=== PATIENT | male | born 1970 | race Caucasian/White ===

== ENCOUNTER 2020-05-15 17:24 | Inpatient (IN) | payer MEDICARE ==
[2020-05-15] MEDS ORDERED: HYDROmorphone 0.5 MG/0.5 ML SYRINGE ONE ×2 (18:11→20:35)
[2020-05-15] MEDS ORDERED: Ondansetron PF 4 MG/2 ML Vial ONE (18:11)
[2020-05-15 18:54] LABS: ALT (SGPT) 34 U/L (8-55); AST (SGOT) 47 U/L (5-34); Albumin 4.4 g/dL (3.5-5.0); Alkaline Phosphatase 68 U/L (40-110); Anion Gap 22 mmol/L (10-20); BUN (Urea Nitrogen) 7 mg/dL (8.4-25.7); Bilirubin, Total 0.2 mg/dL (0.2-1.2); Calc. Creatinine Clearance 0 mL/min (70-130); Calcium 9.7 mg/dL (7.8-10.44); Carbon Dioxide 22 mmol/L (22-29); Chloride 104 mmol/L (98-107); Glucose 90 mg/dL (70-105); Lipase 174 U/L (8-78); Potassium 3.8 mmol/L (3.5-5.1); Protein, Total 8.4 g/dL (6.0-8.3); Sodium 144 mmol/L (136-145)
[2020-05-15 19:08] LABS: #Basophils 0.1 10x3/uL (0.0-0.2); #Eosinphils 0.2 10x3/uL (0.0-0.5); #Monocytes 1.1 10x3/uL (0.0-1.1); #Neutrophils 10.7 10x3/uL (1.5-8.4); %Basophils 0.4 % (0.0-2.0); %Eosinophils 1.4 % (0.0-6.0); %Lymphocytes 14.4 % (18.0-47.0); %Monocytes 7.5 % (0.0-10.0); %Neutrophils 75.7 % (40.0-75.0); Hemoglobin 16.5 g/dL (13.5-17.5); Mean Corpuscular HGB CONC 32.8 g/dL (32.0-36.0); Mean Corpuscular Hemoglobin 30.3 pg (27.0-33.0); Mean Corpuscular Volume 92.5 fl (81.2-95.1); Mean Platelet Volume 10.8 fl (7.4-10.4); Platelet Count 176 10x3/uL (150-450); RBC Distribution Width 15.2 % (11.5-14.5); Red Blood Cell (RBC) Count 5.44 10x6/uL (4.32-5.72); White Blood Cell (WBC) Count 14.1 10x3/uL (3.5-10.5)
[2020-05-15 19:47] LABS: Bilirubin Neg (Negative); Blood, Urine Negative (Negative); Clarity Clear (Clear); Glucose, Urine (Dipstick) Normal (Negative); Ketone, Urine 50 mg/dL (Negative); Leukocyte Negative (Negative); Nitrite Negative (Negative); Protein, Urine (Dipstick) 15 mg/dl (Neg-Trace); Specific Gravity, Urine 1.015 (1.002-1.036); Urobilinogen Normal mg/dL (Less than 2); pH, Urine 6.5 (5.0-9.0)
[2020-05-15] MEDS ORDERED: Promethazine HCl 25 MG/ML VIAL ONE (20:56)
[2020-05-15] MEDS ORDERED: Guaifenesin DM 100-10/5 ML UDCUP PO PRN (21:45)
[2020-05-15] MEDS ORDERED: Zolpidem Tartrate 5 MG TAB PO PRN (21:45)
[2020-05-15] MEDS ORDERED: Senokot S 8.6-50 MG TAB PO PRN (21:45)
[2020-05-15] MEDS ORDERED: Acetaminophen 325 MG TAB PO PRN (21:45)
[2020-05-15] MEDS ORDERED: Calcium Carbonate 500 MG ChewTAB PO PRN (21:45)
[2020-05-15] MEDS ORDERED: Promethazine HCl 12.5 MG in Sodium Chloride 0.9% 50 ML IVPB PRN (21:47)
[2020-05-15] MEDS ORDERED: Ondansetron PF 4 MG/2 ML Vial IVP PRN (21:56)
[2020-05-15] MEDS ORDERED: Sodium Chloride 0.9% (PF) 10 ML VIAL FS PRN (23:45)
[2020-05-15] MEDS ORDERED: Pantoprazole 40 MG VIAL IVP SCH (23:59)
[2020-05-16] MEDS: Lactated Ringer's 1,000 ML IV SCH ×5 (00:23→22:18)
[2020-05-16] MEDS: Nicotine 21 MG PATCH TD SCH ×2 (00:24→23:18)
[2020-05-16] MEDS: HYDROcodone/Acetaminophen 5/325 mg Tablet PO PRN ×6 (00:24→22:11)
[2020-05-16] MEDS: HYDROmorphone 0.5 MG/0.5 ML SYRINGE SLOW IVP PRN ×6 (00:27→22:11)
[2020-05-16 05:20] VITALS: BMI 21.2
[2020-05-16 05:32] LABS: #Eosinphils 0.2 10x3/uL (0.0-0.5); #Monocytes 0.7 10x3/uL (0.0-1.1); #Neutrophils 4.5 10x3/uL (1.5-8.4); %Basophils 0.6 % (0.0-2.0); %Eosinophils 2.7 % (0.0-6.0); %Monocytes 10.2 % (0.0-10.0); %Neutrophils 62.8 % (40.0-75.0); Hemoglobin 12.8 g/dL (13.5-17.5); Mean Corpuscular HGB CONC 32.2 g/dL (32.0-36.0); Mean Corpuscular Hemoglobin 30.3 pg (27.0-33.0); Mean Corpuscular Volume 94.1 fl (81.2-95.1); Mean Platelet Volume 10.6 fl (7.4-10.4); Platelet Count 137 10x3/uL (150-450); RBC Distribution Width 15.2 % (11.5-14.5); Red Blood Cell (RBC) Count 4.22 10x6/uL (4.32-5.72); White Blood Cell (WBC) Count 7.1 10x3/uL (3.5-10.5)
[2020-05-16 05:47] LABS: Anion Gap 15 mmol/L (10-20); Cardiac Risk 2.1 (Less than 4.5); LDL Cholesterol, Calculated 50 mg/dL
[2020-05-16 05:56] LABS: BUN (Urea Nitrogen) 8 mg/dL (8.4-25.7); Calc. Creatinine Clearance 111 mL/min (70-130); Calcium 7.8 mg/dL (7.8-10.44); Carbon Dioxide 25 mmol/L (22-29); Chloride 107 mmol/L (98-107); Cholesterol 120 mg/dl (< 200 Desired); Glucose 72 mg/dL (70-105); HDL Cholesterol 57 mg/dL (>60 Neg Risk); Lipase 77 U/L (8-78); Magnesium 1.6 mg/dL (1.6-2.6); Potassium 3.6 mmol/L (3.5-5.1); Sodium 143 mmol/L (136-145); Triglycerides 67 mg/dL (Less than 150)
[2020-05-16] MEDS: Pantoprazole 40 MG VIAL IVP SCH ×2 (08:58→22:11)
[2020-05-16] MEDS: Multivitamin W/ Minerals 1 TAB PO SCH (08:58)
[2020-05-16] MEDS: Aspirin 81 mg Enteric Coated Tablet PO SCH (08:58)
[2020-05-16] MEDS: Enoxaparin Sodium 40 MG/0.4 ML SYRINGE SC SCH (08:59)
[2020-05-17 02:23] LABS: SARS-CoV-2 PCR by NAA Not Detected (NotDetected)
[2020-05-17] MEDS: HYDROcodone/Acetaminophen 5/325 mg Tablet PO PRN ×2 (03:42→09:17)
[2020-05-17] MEDS: HYDROmorphone 0.5 MG/0.5 ML SYRINGE SLOW IVP PRN (03:44)
[2020-05-17] MEDS: Lactated Ringer's 1,000 ML IV SCH (06:37)
[2020-05-17] MEDS: Pantoprazole 40 MG VIAL IVP SCH (09:16)
[2020-05-17] MEDS: Enoxaparin Sodium 40 MG/0.4 ML SYRINGE SC SCH (09:17)
[2020-05-17] MEDS: Multivitamin W/ Minerals 1 TAB PO SCH (09:17)
[2020-05-17] MEDS: Aspirin 81 mg Enteric Coated Tablet PO SCH (09:17)
[2020-05-17 13:34] VITALS: BP 148/100; TEMP 98.1
== END 2020-05-17 13:22 | disposition home or self-care (01) | DRG 439 ==
LOC: CSHERS 17:24 → CSHTELE 23:38
PROVIDERS: ADMIT Student in an Organized Health Care Education/Training Program; ATTEND Family Medicine
DX: K85.90 Acute pancreatitis without necrosis or infection, unspecified (principal); R65.10 Systemic inflammatory response syndrome (SIRS) of non-infectious origin without acute organ dysfunction; E46 Unspecified protein-calorie malnutrition; K86.1 Other chronic pancreatitis; Z20.822 Contact with and (suspected) exposure to COVID-19; F17.200 Nicotine dependence, unspecified, uncomplicated; K29.80 Duodenitis without bleeding; Z79.82 Long term (current) use of aspirin; Z79.899 Other long term (current) drug therapy; Z88.5 Allergy status to narcotic agent; Z88.8 Allergy status to other drugs, medicaments and biological substances; Z81.1 Family history of alcohol abuse and dependence; Z82.61 Family history of arthritis; E86.0 Dehydration; F10.21 Alcohol dependence, in remission; D63.8 Anemia in other chronic diseases classified elsewhere; K21.9 Gastro-esophageal reflux disease without esophagitis
CPT/HCPCS: 36415; 74177; 80048; 80053; 80061; 81003; 83690; 83735; 85025; 87040; 87635; 93005; 96374; 96375; 96376; C9113; J1170; J2405; J2550; J7120; U0003; U0005

== ENCOUNTER 2020-06-15 09:27 | Inpatient (IN) | payer MEDICARE ==
[2020-06-15 10:29] LABS: Hemoglobin 14.2 g/dL (13.5-17.5); Mean Corpuscular HGB CONC 33.6 g/dL (32.0-36.0); Mean Corpuscular Hemoglobin 30.2 pg (27.0-33.0); Mean Platelet Volume 9.8 fl (7.4-10.4); Platelet Count 233 10x3/uL (150-450); RBC Distribution Width 13.8 % (11.5-14.5); White Blood Cell (WBC) Count 5.7 10x3/uL (3.5-10.5)
[2020-06-15] MEDS ORDERED: Ondansetron PF 4 MG/2 ML Vial ONE ×3 (10:32→10:34)
[2020-06-15] MEDS ORDERED: HYDROmorphone 0.5 MG/0.5 ML SYRINGE ONE (10:33)
[2020-06-15 10:35] LABS: MDiff Complete? YES
[2020-06-15 10:36] LABS: ALT (SGPT) 23 U/L (8-55); AST (SGOT) 48 U/L (5-34); Albumin 3.4 g/dL (3.5-5.0); Alkaline Phosphatase 99 U/L (40-110); Anion Gap 19 mmol/L (10-20); BUN (Urea Nitrogen) 9 mg/dL (8.4-25.7); Bilirubin, Total 0.3 mg/dL (0.2-1.2); Calc. Creatinine Clearance 0 mL/min (70-130); Calcium 8.7 mg/dL (7.8-10.44); Carbon Dioxide 26 mmol/L (22-29); Chloride 97 mmol/L (98-107); Globulin 4.5 g/dL (2.4-3.5); Glucose 122 mg/dL (70-105); Potassium 3.3 mmol/L (3.5-5.1); Protein, Total 7.9 g/dL (6.0-8.3); Sodium 139 mmol/L (136-145)
[2020-06-15 10:53] LABS: Band 25 % (5-11); Lymphocytes 5 % (21-51); Monocytes 1 % (0-10); Neutrophil 68 % (42-75)
[2020-06-15 10:54] LABS: Platelet Morphology Comment Appears Adequate
[2020-06-15 11:51] LABS: SARS-CoV-2 NAA Rapid Test Not Detected (NotDetected)
[2020-06-15] MEDS ORDERED: Ondansetron PF 4 MG/2 ML Vial IVP PRN (11:56)
[2020-06-15] MEDS ORDERED: Acetaminophen 325 MG TAB PO PRN (11:56)
[2020-06-15] MEDS ORDERED: metroNIDAZOLE 500 MG/100 ML BAG ONE (11:57)
[2020-06-15] MEDS ORDERED: Cefepime 2 GM VIAL ONE (11:57)
[2020-06-15] MEDS ORDERED: Potassium Chloride 20 MEQ in Premix Bag 1 BAG IVPB SCH ×2 (12:45→15:45)
[2020-06-15 15:17] VITALS: BMI 21.2
[2020-06-15] MEDS ORDERED: HYDROmorphone 0.5 MG/0.5 ML SYRINGE SLOW IVP SCH (15:45)
[2020-06-15] MEDS: Nicotine 21 MG PATCH TD SCH (15:53)
[2020-06-15] MEDS: Lactated Ringer's 1,000 ML IV SCH ×2 (15:54→20:51)
[2020-06-15] MEDS: PANCRELIPASE PO SCH (18:18)
[2020-06-15] MEDS: Pantoprazole 40 MG VIAL IVP SCH (20:51)
[2020-06-15] MEDS: HYDROcodone/Acetaminophen 10/325 mg Tablet PO PRN (20:52)
[2020-06-16] MEDS: HYDROcodone/Acetaminophen 10/325 mg Tablet PO PRN ×3 (00:36→11:10)
[2020-06-16 05:40] LABS: #Eosinphils 0.2 10x3/uL (0.0-0.5); #Monocytes 0.9 10x3/uL (0.0-1.1); #Neutrophils 9.5 10x3/uL (1.5-8.4); %Basophils 0.3 % (0.0-2.0); %Eosinophils 1.8 % (0.0-6.0); %Lymphocytes 11.4 % (18.0-47.0); %Monocytes 7.4 % (0.0-10.0); %Neutrophils 78.4 % (40.0-75.0); Hemoglobin 11.9 g/dL (13.5-17.5); Mean Corpuscular HGB CONC 31.3 g/dL (32.0-36.0); Mean Corpuscular Hemoglobin 29.9 pg (27.0-33.0); Mean Corpuscular Volume 95.5 fl (81.2-95.1); Mean Platelet Volume 10.4 fl (7.4-10.4); Platelet Count 243 10x3/uL (150-450); RBC Distribution Width 14.2 % (11.5-14.5); Red Blood Cell (RBC) Count 3.98 10x6/uL (4.32-5.72); White Blood Cell (WBC) Count 12.1 10x3/uL (3.5-10.5)
[2020-06-16 05:45] LABS: Anion Gap 12 mmol/L (10-20)
[2020-06-16 06:04] LABS: BUN (Urea Nitrogen) 8 mg/dL (8.4-25.7); Calc. Creatinine Clearance 121 mL/min (70-130); Carbon Dioxide 25 mmol/L (22-29); Chloride 103 mmol/L (98-107); Glucose 75 mg/dL (70-105); Lipase 31 U/L (8-78); Potassium 3.6 mmol/L (3.5-5.1); Sodium 136 mmol/L (136-145)
[2020-06-16] MEDS: Lactated Ringer's 1,000 ML IV SCH ×2 (07:25→13:38)
[2020-06-16] MEDS: Pantoprazole 40 MG VIAL IVP SCH (08:49)
[2020-06-16] MEDS: PANCRELIPASE PO SCH ×2 (08:49→11:11)
[2020-06-16] MEDS ORDERED: Aspirin 81 mg Enteric Coated Tablet PO SCH (09:00)
[2020-06-16] MEDS ORDERED: Multivitamin W/ Minerals 1 TAB PO SCH (09:00)
[2020-06-16] MEDS ORDERED: cefTRIAXone\\ROCEPHIN 2 GM in Sodium Chloride 0.9% 100 ML IVPB SCH (10:00)
[2020-06-16 12:09] VITALS: BP 109/73; TEMP 97.6
[2020-06-16] MEDS: Nicotine 21 MG PATCH TD SCH (13:39)
== END 2020-06-16 13:59 | disposition home or self-care (01) | DRG 439 ==
LOC: CSHERS 09:27 → CSHERHOLD 11:12 → CSHTELE 15:08
PROVIDERS: ADMIT Internal Medicine; ATTEND Internal Medicine
DX: K85.90 Acute pancreatitis without necrosis or infection, unspecified (principal); R65.10 Systemic inflammatory response syndrome (SIRS) of non-infectious origin without acute organ dysfunction; K86.1 Other chronic pancreatitis; K29.80 Duodenitis without bleeding; Z88.5 Allergy status to narcotic agent; Z88.8 Allergy status to other drugs, medicaments and biological substances; Z20.822 Contact with and (suspected) exposure to COVID-19; F17.210 Nicotine dependence, cigarettes, uncomplicated; E87.6 Hypokalemia; E86.0 Dehydration
CPT/HCPCS: 0240U; 36415; 71045; 74177; 80048; 80053; 83605; 83690; 83735; 84484; 85025; 87040; 93005; 96365; 96367; 96375; C9113; J0692; J0696; J1170; J2405; J3480; J3490

== ENCOUNTER 2020-06-22 19:20 | Observation (INO) | payer MEDICARE ==
[2020-06-22] MEDS ORDERED: Morphine 4 MG/ML VIAL ONE (20:12)
[2020-06-22] MEDS ORDERED: Ondansetron PF 4 MG/2 ML Vial ONE (20:12)
[2020-06-22 20:38] LABS: #Basophils 0.1 10x3/uL (0.0-0.2); #Eosinphils 0.1 10x3/uL (0.0-0.5); #Monocytes 1.2 10x3/uL (0.0-1.1); #Neutrophils 8.8 10x3/uL (1.5-8.4); %Basophils 0.5 % (0.0-2.0); %Lymphocytes 15.5 % (18.0-47.0); %Monocytes 9.6 % (0.0-10.0); %Neutrophils 71.3 % (40.0-75.0); Hemoglobin 13.3 g/dL (13.5-17.5); Mean Corpuscular HGB CONC 33.5 g/dL (32.0-36.0); Mean Corpuscular Hemoglobin 29.6 pg (27.0-33.0); Mean Corpuscular Volume 88.4 fl (81.2-95.1); Mean Platelet Volume 9.8 fl (7.4-10.4); Platelet Count 276 10x3/uL (150-450); RBC Distribution Width 14.6 % (11.5-14.5); Red Blood Cell (RBC) Count 4.49 10x6/uL (4.32-5.72); White Blood Cell (WBC) Count 12.3 10x3/uL (3.5-10.5)
[2020-06-22 20:57] LABS: ALT (SGPT) 127 U/L (8-55); AST (SGOT) 85 U/L (5-34); Alkaline Phosphatase 210 U/L (40-110); Anion Gap 16 mmol/L (10-20); BUN (Urea Nitrogen) 8 mg/dL (8.4-25.7); Bilirubin, Total 0.3 mg/dL (0.2-1.2); Calc. Creatinine Clearance 0 mL/min (70-130); Calcium 8.3 mg/dL (7.8-10.44); Carbon Dioxide 26 mmol/L (22-29); Chloride 98 mmol/L (98-107); Globulin 3.6 g/dL (2.4-3.5); Glucose 134 mg/dL (70-105); Lipase 64 U/L (8-78); Potassium 3.1 mmol/L (3.5-5.1); Protein, Total 6.6 g/dL (6.0-8.3); Sodium 137 mmol/L (136-145)
[2020-06-23] MEDS ORDERED: Ondansetron PF 4 MG/2 ML Vial IVP PRN (00:52)
[2020-06-23] MEDS ORDERED: Ondansetron ODT 4 MG TAB PO PRN (00:52)
[2020-06-23] MEDS ORDERED: Morphine 10 MG/ML CARPUJECT SLOW IVP PRN (01:02)
[2020-06-23] MEDS: Lactated Ringer's 1,000 ML IV SCH ×2 (01:21→02:08)
[2020-06-23] MEDS: Morphine 4 MG/ML VIAL SLOW IVP PRN ×6 (01:23→20:48)
[2020-06-23] MEDS: Nicotine 21 MG PATCH TD SCH (01:26)
[2020-06-23 01:31] VITALS: BMI 21.2
[2020-06-23] MEDS: NS 0.9% w/ 40 MEQ KCL 1,000 ML IV SCH ×5 (03:05→21:15)
[2020-06-23 05:07] LABS: #Basophils 0.1 10x3/uL (0.0-0.2); #Eosinphils 0.2 10x3/uL (0.0-0.5); #Neutrophils 6.3 10x3/uL (1.5-8.4); %Basophils 0.5 % (0.0-2.0); %Eosinophils 1.8 % (0.0-6.0); %Lymphocytes 18.9 % (18.0-47.0); %Monocytes 10.3 % (0.0-10.0); %Neutrophils 66.4 % (40.0-75.0); Hemoglobin 12.5 g/dL (13.5-17.5); Mean Corpuscular HGB CONC 32.5 g/dL (32.0-36.0); Mean Corpuscular Hemoglobin 29.6 pg (27.0-33.0); Mean Platelet Volume 9.8 fl (7.4-10.4); Platelet Count 264 10x3/uL (150-450); RBC Distribution Width 14.5 % (11.5-14.5); Red Blood Cell (RBC) Count 4.23 10x6/uL (4.32-5.72); White Blood Cell (WBC) Count 9.5 10x3/uL (3.5-10.5)
[2020-06-23 05:23] LABS: ALT (SGPT) 84 U/L (8-55); AST (SGOT) 63 U/L (5-34); Albumin 2.5 g/dL (3.5-5.0); Alkaline Phosphatase 180 U/L (40-110); Anion Gap 12 mmol/L (10-20); BUN (Urea Nitrogen) 6 mg/dL (8.4-25.7); Bilirubin, Direct 0.2 mg/dL (0.1-0.3); Bilirubin, Total 0.3 mg/dL (0.2-1.2); Calc. Creatinine Clearance 133 mL/min (70-130); Calcium 8.1 mg/dL (7.8-10.44); Carbon Dioxide 25 mmol/L (22-29); Chloride 104 mmol/L (98-107); Glucose 80 mg/dL (70-105); Lipase 51 U/L (8-78); Magnesium 1.8 mg/dL (1.6-2.6); Potassium 3.4 mmol/L (3.5-5.1); Protein, Total 5.8 g/dL (6.0-8.3); Sodium 138 mmol/L (136-145)
[2020-06-23] MEDS: Enoxaparin Sodium 40 MG/0.4 ML SYRINGE SC SCH (09:26)
[2020-06-23] MEDS: Pantoprazole 40 MG VIAL IVP SCH (09:26)
[2020-06-23] MEDS ORDERED: Polyethylene Glycol 3350 17 GM Packet PO PRN (13:22)
[2020-06-24] MEDS: Nicotine 21 MG PATCH TD SCH (01:03)
[2020-06-24] MEDS: Morphine 4 MG/ML VIAL SLOW IVP PRN ×3 (01:43→10:10)
[2020-06-24] MEDS: NS 0.9% w/ 40 MEQ KCL 1,000 ML IV SCH ×2 (03:03→08:27)
[2020-06-24] MEDS: Pantoprazole 40 MG VIAL IVP SCH (08:27)
[2020-06-24] MEDS: Enoxaparin Sodium 40 MG/0.4 ML SYRINGE SC SCH (08:27)
[2020-06-24 08:50] VITALS: TEMP 98.3
[2020-06-24 12:51] VITALS: BP 142/87
== END 2020-06-24 13:35 | disposition home or self-care (01) ==
LOC: CSHERS 19:20 → CSHTELE 06-23 00:19
PROVIDERS: ADMIT Family Medicine; ATTEND Internal Medicine
DX: K85.90 Acute pancreatitis without necrosis or infection, unspecified (principal); F10.21 Alcohol dependence, in remission; K86.3 Pseudocyst of pancreas; I10 Essential (primary) hypertension; F17.210 Nicotine dependence, cigarettes, uncomplicated; R74.01 Elevation of levels of liver transaminase levels; R74.8 Abnormal levels of other serum enzymes; E87.6 Hypokalemia
CPT/HCPCS: 80048; 80053; 80076; 83690 ×2; 83735; 84484; 85025 ×2; 93005; 96372 ×2; 96374; 96375 ×2; 96376 ×2; 99285; G0378 ×2; 36415; C9113; J1650; J2270; J2405; J3480; J7120

== ENCOUNTER 2020-09-25 03:23 | Observation (INO) | payer MEDICARE ==
[2020-09-25] MEDS ORDERED: Morphine 4 MG/ML VIAL ONE ×2 (04:42→07:18)
[2020-09-25] MEDS ORDERED: Ondansetron PF 4 MG/2 ML Vial ONE (04:42)
[2020-09-25 05:02] LABS: Mean Corpuscular HGB CONC 31.2 g/dL (32.0-36.0); Mean Corpuscular Hemoglobin 28.6 pg (27.0-33.0); Mean Corpuscular Volume 91.9 fl (81.2-95.1); Mean Platelet Volume 9.5 fl (7.4-10.4); Platelet Count 292 10x3/uL (150-450); RBC Distribution Width 16.6 % (11.5-14.5); Red Blood Cell (RBC) Count 4.54 10x6/uL (4.32-5.72); White Blood Cell (WBC) Count 21.8 10x3/uL (3.5-10.5)
[2020-09-25 05:18] LABS: ALT (SGPT) 8 U/L (8-55); AST (SGOT) 15 U/L (5-34); Albumin 4.1 g/dL (3.5-5.0); Alkaline Phosphatase 68 U/L (40-110); Anion Gap 18 mmol/L (10-20); BUN (Urea Nitrogen) 6 mg/dL (8.4-25.7); Bilirubin, Total 0.5 mg/dL (0.2-1.2); Calc. Creatinine Clearance 0 mL/min (70-130); Calcium 9.9 mg/dL (7.8-10.44); Carbon Dioxide 24 mmol/L (22-29); Chloride 103 mmol/L (98-107); Globulin 4.3 g/dL (2.4-3.5); Glucose 94 mg/dL (70-105); Lipase 290 U/L (8-78); Potassium 3.6 mmol/L (3.5-5.1); Protein, Total 8.4 g/dL (6.0-8.3); Sodium 141 mmol/L (136-145)
[2020-09-25 07:05] LABS: MDiff Complete? YES
[2020-09-25 07:08] LABS: Band 5 % (5-11); Eosinophils 1 % (0-10); Lymphocytes 2 % (21-51); Monocytes 5 % (0-10); Neutrophil 87 % (42-75)
[2020-09-25 07:09] LABS: Platelet Morphology Comment Appears Adequate; RBC Morphology Normal
[2020-09-25] MEDS ORDERED: Acetaminophen 325 MG TAB PO PRN (07:30)
[2020-09-25] MEDS ORDERED: Ondansetron PF 4 MG/2 ML Vial IVP PRN (07:30)
[2020-09-25 08:02] LABS: Bilirubin Neg (Negative); Blood, Urine Negative (Negative); Clarity Clear (Clear); Glucose, Urine (Dipstick) Normal (Negative); Ketone, Urine 50 mg/dL (Negative); Leukocyte Negative (Negative); Nitrite Negative (Negative); Protein, Urine (Dipstick) Negative (Neg-Trace); Urobilinogen Normal mg/dL (Less than 2); pH, Urine 6.5 (5.0-9.0)
[2020-09-25] MEDS ORDERED: Famotidine/PF 20 mg/2ml Vial ONE (08:31)
[2020-09-25] MEDS: Lactated Ringer's 1,000 ML IV SCH ×2 (08:39→20:30)
[2020-09-25] MEDS: Famotidine/PF 20 mg/2ml Vial SLOW IVP SCH ×2 (08:39→21:41)
[2020-09-25] MEDS: HYDROcodone/Acetaminophen 10/325 mg Tablet PO PRN ×2 (11:47→22:40)
[2020-09-25] MEDS ORDERED: HYDROcodone/Acetaminophen 10/325 mg Tablet ONE (11:48)
[2020-09-25] MEDS: Fentanyl 100 MCG/2 ML VIAL SLOW IVP PRN ×2 (16:15→20:54)
[2020-09-25 23:03] VITALS: BMI 20.5
[2020-09-26] MEDS: Fentanyl 100 MCG/2 ML VIAL SLOW IVP PRN (01:15)
[2020-09-26 05:04] LABS: #Eosinphils 0.3 10x3/uL (0.0-0.5); #Monocytes 0.7 10x3/uL (0.0-1.1); #Neutrophils 5.9 10x3/uL (1.5-8.4); %Basophils 0.2 % (0.0-2.0); %Eosinophils 3.1 % (0.0-6.0); %Lymphocytes 19.4 % (18.0-47.0); %Monocytes 8.4 % (0.0-10.0); %Neutrophils 68.2 % (40.0-75.0); Hemoglobin 10.7 g/dL (13.5-17.5); Mean Corpuscular HGB CONC 31.8 g/dL (32.0-36.0); Mean Corpuscular Hemoglobin 29.1 pg (27.0-33.0); Mean Corpuscular Volume 91.3 fl (81.2-95.1); Mean Platelet Volume 9.5 fl (7.4-10.4); Platelet Count 199 10x3/uL (150-450); RBC Distribution Width 16.5 % (11.5-14.5); Red Blood Cell (RBC) Count 3.68 10x6/uL (4.32-5.72); White Blood Cell (WBC) Count 8.7 10x3/uL (3.5-10.5)
[2020-09-26 05:10] LABS: ALT (SGPT) 7 U/L (8-55); AST (SGOT) 14 U/L (5-34); Albumin 3.1 g/dL (3.5-5.0); Alkaline Phosphatase 49 U/L (40-110); Anion Gap 13 mmol/L (10-20); BUN (Urea Nitrogen) 4 mg/dL (8.4-25.7); Bilirubin, Total 0.2 mg/dL (0.2-1.2); Calc. Creatinine Clearance 114 mL/min (70-130); Calcium 9.1 mg/dL (7.8-10.44); Carbon Dioxide 22 mmol/L (22-29); Chloride 107 mmol/L (98-107); Globulin 3.2 g/dL (2.4-3.5); Glucose 117 mg/dL (70-105); Lipase 207 U/L (8-78); Potassium 3.5 mmol/L (3.5-5.1); Protein, Total 6.3 g/dL (6.0-8.3); Sodium 138 mmol/L (136-145)
[2020-09-26] MEDS: HYDROcodone/Acetaminophen 10/325 mg Tablet PO PRN (05:37)
[2020-09-26] MEDS: Lactated Ringer's 1,000 ML IV SCH ×2 (05:37→09:04)
[2020-09-26 07:53] LABS: SARS-CoV-2 PCR by NAA Not Detected (NotDetected)
[2020-09-26] MEDS ORDERED: Sodium Chloride 0.65% Nasal 44 ML BOT EA NARE PRN (08:07)
[2020-09-26] MEDS ORDERED: Hydrocerin (Eucerin) Cream 120 gm Jar TOP PRN (08:07)
[2020-09-26] MEDS ORDERED: Cepastat Lozenges 1 LOZ PO PRN (08:07)
[2020-09-26] MEDS ORDERED: Fentanyl 100 MCG/2 ML VIAL SLOW IVP PRN (08:07)
[2020-09-26] MEDS ORDERED: Ondansetron ODT 4 MG TAB PO PRN (08:07)
[2020-09-26] MEDS ORDERED: Zolpidem Tartrate 5 MG TAB PO PRN (08:07)
[2020-09-26] MEDS ORDERED: Loratadine 10 MG TAB PO PRN (08:07)
[2020-09-26] MEDS ORDERED: Benzonatate 100 MG CAP PO PRN (08:07)
[2020-09-26] MEDS ORDERED: Bisacodyl 5 MG TAB PO PRN (08:07)
[2020-09-26] MEDS ORDERED: GUAIFENESIN SF SOLN 200 MG/10 ML UDCUP PO PRN (08:07)
[2020-09-26] MEDS ORDERED: Calcium Carbonate 500 MG ChewTAB PO PRN (08:07)
[2020-09-26] MEDS ORDERED: Senokot S 8.6-50 MG TAB PO PRN (08:07)
[2020-09-26] MEDS ORDERED: Artificial Tear Sol 15 ML BOT EA EYE PRN (08:07)
[2020-09-26] MEDS ORDERED: Loperamide HCl 2 MG CAP PO PRN (08:07)
[2020-09-26] MEDS ORDERED: hydrALAZINE 20 MG/ML VIAL SLOW IVP PRN (08:07)
[2020-09-26] MEDS: Famotidine/PF 20 mg/2ml Vial SLOW IVP SCH (09:05)
[2020-09-26 11:32] VITALS: BP 110/75; TEMP 98.6
== END 2020-09-26 13:51 | disposition home or self-care (01) ==
LOC: CSHERS 03:23 → INTOOBSV 07:42 → CSHERHOLD 07:42 → CSHTELE 18:39
PROVIDERS: ADMIT Internal Medicine Cardiovascular Disease; ATTEND Internal Medicine
DX: K85.90 Acute pancreatitis without necrosis or infection, unspecified (principal); D53.9 Nutritional anemia, unspecified; E44.0 Moderate protein-calorie malnutrition; F17.210 Nicotine dependence, cigarettes, uncomplicated; Z91.19 Patient's noncompliance with other medical treatment and regimen; F10.21 Alcohol dependence, in remission; D72.829 Elevated white blood cell count, unspecified; Z20.822 Contact with and (suspected) exposure to COVID-19
CPT/HCPCS: 80053 ×2; 81003; 83690 ×2; 85025 ×2; 93005; 94760; 96374; 96375; 96376; 99285; U0003; U0005; J2270; J2405; J3010; S0028